=== PATIENT | female | born 1970 | race Caucasian/White ===

== ENCOUNTER 2018-12-10 07:20 | Day surgery (SDC) | payer OTHER ==
[2018-11-25 14:38] VITALS: BMI 20.5
[2018-12-10] MEDS ORDERED: ROPIVACAINE HCL 0.5% 30ML VIAL ONE (09:29)
[2018-12-10] MEDS ORDERED: MIDAZOLAM HCL 2 MG/2 ML SINGLE DOSE VIAL ONE ×2 (09:30)
[2018-12-10] MEDS ORDERED: BUPIVACAINE HCL/EPINEPHRINE/PF 30 ML VIAL IJ ONE (10:12)
[2018-12-10] MEDS ORDERED: ONDANSETRON 4 MG/2 ML VIAL ONE (10:28)
[2018-12-10] MEDS ORDERED: DEXAMETHASONE SOD PHOSPHATE 4 MG/1 ML VIAL ONE (10:28)
[2018-12-10] MEDS ORDERED: ceFAZolin SODIUM 1 GM VIAL ONE (10:28)
[2018-12-10] MEDS ORDERED: PROPOFOL 20 ML ONE ×3 (10:30→11:54)
[2018-12-10] MEDS ORDERED: KETOROLAC TROMETHAMINE 30 MG/1 ML VIAL ONE (12:20)
[2018-12-10] MEDS ORDERED: oxyCODONE HCL 10 MG SUSTAINED ACTING TABLET PO ONE (12:28)
[2018-12-10] MEDS ORDERED: oxyCODONE HCL 5 MG TABLET PO PRN ×2 (12:28→12:43)
--- NOTE | 2018-12-10 12:30 | SURG ---
Surgery Legal Transcriptionist Note Legal Transcriptionist: Omari Bartlett PA-C Date of Service: 12/10/18 Diagnosis: Right shoulder biceps tenodesis, right shoulder rotator cuff tear Procedure: Right shoulder arthroscopy, biceps tenodesis, right shoulder rotator cuff tear I was present for the entirety of the operative procedure. For further detail, please refer to operative report. Visit type - Case Type Case Type: Scheduled - New patient This patient is new to me today: Yes Date on this admission: 12/10/18
--- NOTE | 2018-12-10 12:31 | DS ---
Physical Examination Vital Signs: Vital Signs Temperature 98.6 F 12/10/18 07:48 Pulse Rate 63 12/10/18 07:48 Respiratory Rate 18 12/10/18 07:48 Blood Pressure 133/66 12/10/18 07:48 O2 Sat by Pulse Oximetry (%) 97 12/10/18 07:48 Discharge Summary Reason For Visit: ROTATOR CUFF TEAR,BICEPS TENDINITIS OF RT SHOULDER Condition: Good - Instructions Diet, Activity, Other Instructions: Post Operative Instructions: Shoulder Arthroscopy Dr Ronal Longo 1. Pain following a Shoulder Arthroscopy is variable and can be significant. Some patients will have more pain than others. You have been provided with a prescription for medication that contains a narcotic. You are not allowed to drive while on this medication. You can take Tylenol (Acetaminophen) when taking the pain medication ( it will NOT result in an overdose). Feel free to take medications such as Ibuprofen or Naprosyn in addition to the pain medicine if you do not have any problems with the NSAID class of medications. 2. Apply ice to the shoulder for 15 minutes every hour. You may continue this for as many days as necessary. 3. You may find sleeping on an incline (reclining chair) to be more comfortable for the first few days. 4. You must remain in your sling at all times except when showering. The only exception to this is to allow you to stretch your elbow a few times a day to prevent your hand and forearm from swelling. 5. You are not to use your arm to reach for anything, lift anything or carry anything until instructed otherwise. 6. You may remove the bandages in 48 hours. You may shower at that point. 7. Place band-aids on the sutures after your shower.Do not put any creams or lotions on the incision until after the sutures are removed. 8. Please call the office to schedule a visit to have your sutures removed. 9. If for any reason you believe you may have an infection or are concerned, please feel free to call me. I can be reached through our office number 24 hours a day. 10. Please call our office with any questions; we will review the surgical findings during your post-operative visit. Disposition: HOME - Home Medications Comprehensive Discharge Medication List: Ambulatory Orders Carisoprodol [Soma (Nf)] 350 mg PO Q6H PRN 11/25/18 Erenumab-Aooe [Aimovig Autoinjector] 70 mg SQ MONTHLY 11/25/18 Methocarbamol [Robaxin -] 500 mg PO TID PRN 11/25/18 traZODone HCL [Trazodone HCl] 100 mg PO HS 11/25/18
--- NOTE | 2018-12-10 12:31 | OP ---
Operative Note - Note: Operative Date: 12/10/18 Pre-Operative Diagnosis: Right shouler RCT, biceps partial tear/subluxation Operation: RSA, RCR, open biceps tenodesis Post-Operative Diagnosis: Same as Pre-op Surgeon: Ronal Longo Anesthesiologist/[employer]ER: Helio Gutierrez Anesthesia: General Operative Report Dictated: Yes
[2018-12-10] MEDS ORDERED: ONDANSETRON 4 MG/2 ML VIAL IVPUSH PRN (12:43)
[2018-12-10] MEDS ORDERED: LACTATED RINGERS SOLUTION 1,000 ML IV SCH (12:45)
[2018-12-10] MEDS ORDERED: oxyCODONE HCL 10 MG SUSTAINED ACTING TABLET ONE (15:04)
[2018-12-10 15:22] VITALS: TEMP 98.4
[2018-12-10 16:09] VITALS: BP 124/72; PULSE 66
--- NOTE | 2018-12-10 16:41 | PN ---
Progress Note (short form) - Note Progress Note: called to evaluate the patient in the PACU who developed a wide complex arrhythmia on rhythm strip. Pt. had previously been in sinus rhythm. She denied chest pain, sob. No diaphoresis. She did complain of severe anxiety and stated she suffers from "panic attacks". The wide complex resolved spontaneously, before a 12 lead could be obtained. 12 lead ekg showed T wave inversion in 2, 3 and F. Previous ekg showed inverted T waves in 3, F. Dr. Azevedo from cardiology was consulted and after discussing the case and review of the EKGs, he felt the patient was stable for discharge. Repeat ekg at 2pm showed a complete return to baseline. Patient was asymptomatic throughout, she and her were informed of what was happening the entire time and will follow up with Dr. Azevedo as an outpatient.
--- NOTE | 2018-12-11 16:52 | EKG ---
Test Reason : Blood Pressure : / mmHG Vent. Rate : 060 BPM Atrial Rate : 060 BPM P-R Int : 154 ms QRS Dur : 086 ms QT Int : 458 ms P-R-T Axes : 064 030 026 degrees QTc Int : 458 ms NORMAL SINUS RHYTHM ABNORMAL ECG WHEN COMPARED WITH ECG OF 10-DEC-2018 12:51, NONSPECIFIC T WAVE ABNORMALITY, IMPROVED IN ANTERIOR LEADS Confirmed by Tonya Low ([id number]) on 12/11/2018 4:51:42 PM Referred By: Ronal Longo Confirmed By:Tonya Low
--- NOTE | 2018-12-14 17:23 | PATH ---
Surgical Pathology Report Patient Name: TYLER GARCIA [facility]. Rec. #: [id number] /Age/Gender: 1970 (Age: 48) / F Account: [id number] Location: [facility] Taken: 12/10/2018 Received: 12/10/2018 Reported: 12/14/2018 Physicians: Ronal Longo M.D. Specimen(s) Received SHAVINGS RIGHT SHOULDER Clinical History Right rotator cuff tear Final Diagnosis SHOULDER SHAVINGS, [RIGHT], ARTHROSCOPY: FRAGMENTS OF DENSE FIBROCONNECTIVE TISSUE, ADIPOSE TISSUE, AND SYNOVIUM. Electronically Signed Adela Samayoa M.D. Gross Description Received in formalin, labeled "shavings right shoulder," is a 3.0 x 2.5 x 0.3 cm. aggregate of ochoa-yellow soft tissue fragments. A public service representative portion is submitted in one cassette. 12/13/2018 saudi12/13/2018
== END 2018-12-10 16:11 | disposition home or self-care (01) ==
LOC: FASU 07:20
PROVIDERS: ATTEND Orthopaedic Surgery
PROC: 0RBJ4ZZ Excision of Right Shoulder Joint, Percutaneous Endoscopic Approach (ICD-10-PCS; 2018-12-10)
PROC: 0LS10ZZ Reposition Right Shoulder Tendon, Open Approach (ICD-10-PCS; 2018-12-10)
PROC: 0LQ14ZZ Repair Right Shoulder Tendon, Percutaneous Endoscopic Approach (ICD-10-PCS; principal; 2018-12-10 11:13)
PROC: 0RNJ4ZZ Release Right Shoulder Joint, Percutaneous Endoscopic Approach (ICD-10-PCS; 2018-12-10 11:13)
DX: M75.101 Unspecified rotator cuff tear or rupture of right shoulder, not specified as traumatic (principal); M66.811 Spontaneous rupture of other tendons, right shoulder
CPT/HCPCS: 84703; 88304-TC; 93005; 93010; 94760

== ENCOUNTER 2021-10-07 11:14 | Day surgery (SDC) | payer OTHER ==
[2021-09-30 13:32] VITALS: BMI 20.9
[2021-10-07] MEDS ORDERED: ROPIVACAINE HCL/PF 100 MG/20 ML VIAL ONE (13:15)
[2021-10-07] MEDS ORDERED: MIDAZOLAM HCL 2 MG/2 ML SINGLE DOSE VIAL ONE (13:15)
[2021-10-07] MEDS ORDERED: PROPOFOL 20 ML ONE ×3 (14:01)
[2021-10-07] MEDS ORDERED: ceFAZolin SODIUM 1 GM VIAL ONE (14:22)
[2021-10-07] MEDS ORDERED: BUPIVACAINE HCL/EPINEPHRINE/PF 30 ML VIAL IJ ONE (14:35)
[2021-10-07] MEDS ORDERED: ACETAMINOPHEN 325 MG TABLET (FP) PO PRN (15:38)
[2021-10-07] MEDS ORDERED: ONDANSETRON 4 MG/2 ML VIAL IVPUSH PRN (15:38)
[2021-10-07] MEDS ORDERED: oxyCODONE HCL 5 MG TABLET PO PRN (15:38)
[2021-10-07] MEDS ORDERED: LACTATED RINGERS SOLUTION 1,000 ML IV SCH (15:45)
[2021-10-07 17:32] VITALS: TEMP 98.4
[2021-10-07 17:39] VITALS: BP 127/87; PULSE 81
== END 2021-10-07 16:55 | disposition home or self-care (01) ==
LOC: FASU 11:14
PROVIDERS: ATTEND Orthopaedic Surgery
PROC: 0RNJ0ZZ Release Right Shoulder Joint, Open Approach (ICD-10-PCS; 2021-10-07)
PROC: 0L830ZZ Division of Right Upper Arm Tendon, Open Approach (ICD-10-PCS; principal; 2021-10-07 14:23)
DX: M75.41 Impingement syndrome of right shoulder (principal); M62.411 Contracture of muscle, right shoulder
CPT/HCPCS: 84703; 94760

== ENCOUNTER 2022-01-21 04:25 | Day surgery (SDC) | payer OTHER ==
[2022-01-20 09:53] VITALS: BMI 21.1
[2022-01-21] MEDS ORDERED: LIDOCAINE HCL/PF 1% SDV 5ML VIAL ONE ×2 (07:08→10:02)
[2022-01-21] MEDS ORDERED: SODIUM CHLORIDE 0.9% P/F 10 ML VIAL IJ ONE (07:31)
[2022-01-21] MEDS ORDERED: LIDOCAINE 1% P/F 10 MG/ML VIAL INF ONE ×2 (10:32)
[2022-01-21 11:20] VITALS: TEMP 97.8
[2022-01-21 12:58] VITALS: BP 120/54; PULSE 74
== END 2022-01-21 12:30 | disposition home or self-care (01) ==
LOC: JASU-SURG 04:25
PROVIDERS: ATTEND Pain Medicine Pain Medicine
PROC: 01HY3MZ Insertion of Neurostimulator Lead into Peripheral Nerve, Percutaneous Approach (ICD-10-PCS; principal; 2022-01-21 10:00)
DX: G89.4 Chronic pain syndrome (principal); M25.511 Pain in right shoulder
CPT/HCPCS: 64555; C1897; 81025

== ENCOUNTER 2022-02-11 04:42 | Day surgery (SDC) | payer OTHER ==
[2022-02-07 16:26] VITALS: BMI 21.1
[2022-02-11] MEDS ORDERED: LIDOCAINE HCL/PF 1% SDV 5ML VIAL ONE (07:14)
[2022-02-11] MEDS ORDERED: LIDOCAINE HCL/PF 2% SDV 5ML VIAL ONE (07:26)
[2022-02-11] MEDS ORDERED: LIDOCAINE HCL 1% PRESERVATIVE FREE - 30ML VIAL IJ ONE ×2 (07:27→08:19)
[2022-02-11 09:30] VITALS: TEMP 98
[2022-02-11 10:36] VITALS: BP 110/60; PULSE 62
== END 2022-02-11 09:45 | disposition home or self-care (01) ==
LOC: JASU-SURG 04:42
PROVIDERS: ATTEND Pain Medicine Pain Medicine
PROC: 01HY3MZ Insertion of Neurostimulator Lead into Peripheral Nerve, Percutaneous Approach (ICD-10-PCS; principal; 2022-02-11 08:00)
DX: G89.4 Chronic pain syndrome (principal); M25.511 Pain in right shoulder
CPT/HCPCS: 64555; C1897; 81025

== ENCOUNTER 2022-07-30 06:26 | Day surgery (SDC) | payer OTHER ==
[2022-07-28 12:49] VITALS: BMI 20.5
[2022-07-30] MEDS ORDERED: LIDOCAINE HCL 2% (20ML MULTI-DOSE VIAL) ONE (07:17)
[2022-07-30] MEDS ORDERED: SUCCINYLCHOLINE CHLORIDE 200 MG/10 ML SYRINGE ONE (07:27)
[2022-07-30] MEDS ORDERED: PROPOFOL 20 ML ONE ×2 (07:27→08:07)
[2022-07-30] MEDS ORDERED: MIDAZOLAM HCL 2 MG/2 ML SINGLE DOSE VIAL ONE (07:27)
[2022-07-30 08:38] VITALS: RESP 16; TEMP 97.7
[2022-07-30 09:03] VITALS: BP 114/74; PULSE 61
== END 2022-07-30 09:05 | disposition home or self-care (01) ==
LOC: FASU 06:26
PROVIDERS: ATTEND Orthopaedic Surgery Hand Surgery
PROC: 01N50ZZ Release Median Nerve, Open Approach (ICD-10-PCS; principal; 2022-07-30 08:01)
DX: G56.01 Carpal tunnel syndrome, right upper limb (principal)
CPT/HCPCS: 81025

== ENCOUNTER 2022-10-08 08:34 | Day surgery (SDC) | payer OTHER ==
[2022-10-01 15:17] VITALS: BMI 20.5
[2022-10-08 09:10] VITALS: RESP 18
[2022-10-08] MEDS ORDERED: MIDAZOLAM HCL 2 MG/2 ML SINGLE DOSE VIAL ONE (09:28)
[2022-10-08] MEDS ORDERED: PROPOFOL 20 ML ONE (09:43)
[2022-10-08] MEDS ORDERED: ONDANSETRON 4 MG/2 ML VIAL ONE (09:52)
[2022-10-08 10:33] VITALS: TEMP 97.8
[2022-10-08 10:49] VITALS: BP 141/71; PULSE 76
== END 2022-10-08 10:39 | disposition home or self-care (01) ==
LOC: FASU 08:34
PROVIDERS: ATTEND Orthopaedic Surgery Hand Surgery
PROC: 01N50ZZ Release Median Nerve, Open Approach (ICD-10-PCS; principal; 2022-10-08 09:47)
DX: G56.02 Carpal tunnel syndrome, left upper limb (principal)
CPT/HCPCS: 81025

== ENCOUNTER 2022-11-21 03:55 | Day surgery (SDC) | payer OTHER ==
[2022-11-07 16:00] VITALS: BMI 20.5
[2022-11-21 07:24] VITALS: RESP 18
[2022-11-21] MEDS ORDERED: LIDOCAINE HCL 1% PRESERVATIVE FREE - 30ML VIAL IJ ONE ×2 (08:45)
[2022-11-21 09:26] VITALS: BP 118/62; PULSE 69; TEMP 98.4
== END 2022-11-21 09:56 | disposition home or self-care (01) ==
LOC: JASU-SURG 03:55
PROVIDERS: ATTEND Pain Medicine Pain Medicine
PROC: 01HY3MZ Insertion of Neurostimulator Lead into Peripheral Nerve, Percutaneous Approach (ICD-10-PCS; principal; 2022-11-21 08:00)
DX: G89.4 Chronic pain syndrome (principal)
CPT/HCPCS: 64555; C1778; 81025

== ENCOUNTER 2023-02-24 04:44 | Day surgery (SDC) | payer OTHER ==
[2023-02-23 11:05] VITALS: BMI 20.5
[~2023-02-24 04:44] MED LIST: BUPIVACAINE HCL/PF 0.5% (5MG/ML) 10 ML VIAL IJ ONE; LIDOCAINE 1% P/F 10 MG/ML VIAL INF ONE
[2023-02-24] MEDS ORDERED: BUPIVACAINE HCL/PF 0.5% (5MG/ML) 10 ML VIAL ONE ×2 (07:30→13:00)
[2023-02-24] MEDS ORDERED: LIDOCAINE HCL/PF 1% SDV 5ML VIAL ONE ×2 (07:30→07:33)
[2023-02-24 11:29] VITALS: RESP 18
[2023-02-24] MEDS ORDERED: LIDOCAINE 1% P/F 10 MG/ML VIAL INF ONE (13:08)
[2023-02-24] MEDS ORDERED: BUPIVACAINE HCL/PF 0.5% (5MG/ML) 10 ML VIAL IJ ONE (13:08)
[2023-02-24 15:11] VITALS: BP 147/90; PULSE 76; TEMP 98.7
[2023-02-24] MEDS ORDERED: ACETAMINOPHEN 500 MG TABLET (FP) PO PRN (16:10)
== END 2023-02-24 14:55 | disposition home or self-care (01) ==
LOC: JASU-SURG 04:44
PROVIDERS: ATTEND Pain Medicine Pain Medicine
PROC: 3E0T33Z Introduction of Anti-inflammatory into Peripheral Nerves and Plexi, Percutaneous Approach (ICD-10-PCS; 2023-02-24)
PROC: 3E0T3BZ Introduction of Anesthetic Agent into Peripheral Nerves and Plexi, Percutaneous Approach (ICD-10-PCS; principal; 2023-02-24 12:45)
DX: M47.812 Spondylosis without myelopathy or radiculopathy, cervical region (principal)
CPT/HCPCS: 76000-TC-FY; 81025

== ENCOUNTER 2023-03-04 06:13 | Day surgery (SDC) | payer OTHER ==
[2023-02-27 17:50] VITALS: BMI 20.5
[2023-03-04] MEDS ORDERED: PROPOFOL 40 ML ONE (07:00)
[2023-03-04] MEDS ORDERED: MIDAZOLAM HCL 2 MG/2 ML SINGLE DOSE VIAL ONE (07:00)
[2023-03-04] MEDS ORDERED: KETOROLAC TROMETHAMINE 30 MG/1 ML VIAL ONE (07:00)
[2023-03-04] MEDS ORDERED: ceFAZolin SODIUM 1 GM VIAL ONE (07:00)
[2023-03-04] MEDS ORDERED: ONDANSETRON 4 MG/2 ML VIAL ONE (07:00)
[2023-03-04] MEDS ORDERED: DEXAMETHASONE SOD PHOSPHATE 4 MG/1 ML VIAL ONE (07:00)
[2023-03-04] MEDS ORDERED: DEXAMETHASONE SOD PHOSPHATE/PF 10 MG/ML SDV ONE (07:07)
[2023-03-04] MEDS ORDERED: BUPIVACAINE HCL/PF 0.5% (5MG/ML) 10 ML VIAL ONE (07:07)
[2023-03-04] MEDS ORDERED: ACETAMINOPHEN INJECTION 100 ML IVPB ONE (07:07)
[2023-03-04] MEDS ORDERED: BUPIVACAINE HCL/EPINEPHRINE/PF 30 ML VIAL IJ ONE (07:11)
[2023-03-04] MEDS ORDERED: ONDANSETRON 4 MG/2 ML VIAL IVPUSH PRN (07:32)
[2023-03-04] MEDS ORDERED: ACETAMINOPHEN 325 MG TABLET (FP) PO PRN (07:32)
[2023-03-04] MEDS ORDERED: LACTATED RINGERS SOLUTION 1,000 ML IV SCH (07:45)
[2023-03-04] MEDS ORDERED: KETAMINE HCL 200 MG/20 ML VIAL ONE (07:52)
[2023-03-04] MEDS ORDERED: LIDOCAINE HCL 2% 100 MG/5 ML DISP.SYRIN ONE (08:01)
[2023-03-04] MEDS ORDERED: PROPOFOL 20 ML ONE (08:36)
[2023-03-04 09:48] VITALS: TEMP 97.2
[2023-03-04 09:50] VITALS: RESP 18
[2023-03-04 10:45] VITALS: BP 132/70; PULSE 60
== END 2023-03-04 10:47 | disposition home or self-care (01) ==
LOC: FASU 06:13
PROVIDERS: ATTEND Orthopaedic Surgery
PROC: 0LS40ZZ Reposition Left Upper Arm Tendon, Open Approach (ICD-10-PCS; 2023-03-04)
PROC: 0RNK4ZZ Release Left Shoulder Joint, Percutaneous Endoscopic Approach (ICD-10-PCS; principal; 2023-03-04 08:16)
DX: M75.22 Bicipital tendinitis, left shoulder (principal); M75.52 Bursitis of left shoulder
CPT/HCPCS: 81025; 88304-TC; 94760; C1713